=== PATIENT | male | born 1980 | race Caucasian/White ===

== ENCOUNTER 2022-12-12 16:00 | Emergency (ER) | payer OTHER, SELFPAY ==
[2022-12-12 16:06] VITALS: BP 199/102; PULSE 103; RESP 18; TEMP 37.4; O2SAT 98; BMI 39.1
[2022-12-12 17:02] VITALS: BP 183/113
--- NOTE | 2022-12-12 20:43 | ED_ITS ---
HPI - Eye Problem General Chief complaint: Eye Problems Stated complaint: Ammonia chloride exposure-sprayed face Time Seen by Provider: 12/12/22 16:30 History of Present Illness HPI Narrative: 42-year-old young man presents to the emergency department after being splashed with a few drops of ammonium chloride while working when the tube ammonium chloride shattered spraying into his face. He was wearing safety glasses and some drops still got to his eyes. He went directly to the eye wash station. Further went home and showered and has presented to the emergency department after initially presenting to urgent care who recommended he be seen in the ER. Still having some mild irritation. No loss of vision apparent. Is not having tremendous pain. Is not suspected to have gotten any glass shards are otherwise into his eyes. I also note rather elevated blood pressure on initial vitals. Related Data Allergies Allergy/AdvReac Type Severity Reaction Status Date / Time No Known Drug Allergies Allergy Verified 12/12/22 16:10 Review of Systems Status of ROS: Reports: 6 or more systems reviewed and unremarkable except as noted in History and below Exam Narrative: Exam Narrative: Pleasant. NAD. Sounds a little congested. Otherwise breathing easily. Heart is in an elevated rate. Do not see any drainage from the eye. There is mild scleral injection. Shoes are dyed with a light blue liquid that apparently is the ammonium chloride. No odor noted. He does allow for good eye exam. Initial exam does not reveal any foreign body or obvious injury under the lids. There is some mild erythema around the eyes. Did not require anesthetic and placed fluorescein dye. Under blue light/Wood's lamp and there is some broad mild uptake in the lower right sclera and a little less so in the left sclera also lower lid area. No abrasion appreciated over the cornea. Const: Vital Signs, click to edit/add: Vital Signs - 24 hr 12/12/22 16:06 12/12/22 17:02 Temperature 99.3 F Pulse Rate [Pulse Oximeter] 103 H Respiratory Rate 18 Blood Pressure [Ri ght Upper Arm] 199/102 H 183/113 H Pulse Oximetry 98 Oxygen Delivery Me thod Room Air Room Air Documenting provider has reviewed patient's vital signs: yes Course Vital Signs Vital signs: Initial Vital Signs Temperature 99.3 F 12/12/22 16:06 Temperature Source Temporal Artery Scan 12/12/22 16:06 Pulse Rate 103 H 02/27/23 16:06 Pulse Rhythm 12/12/22 16:06 Pulse Strength 3+ Normal 12/12/22 16:06 Respiratory Rate 18 12/12/22 16:06 Blood Pressure 199/102 H 12/12/22 16:06 Blood Pressure Mean 134 12/12/22 16:06 Blood Pressure Position Supine 12/12/22 16:06 Pulse Oximetry 98 12/12/22 16:06 Oxygen Delivery Method 12/12/22 16:06 Vital Signs Temperature 99.3 F 12/12/22 16:06 Pulse Rate 103 H 12/12/22 16:06 Respiratory Rate 18 12/12/22 16:06 Blood Pressure 199/102 H 12/12/22 16:06 Pulse Oximetry 98 12/12/22 16:06 Oxygen Delivery Method 12/12/22 16:06 Temperature 99.3 F 12/12/22 16:06 Pulse Rate 103 H 12/12/22 16:06 Respiratory Rate 18 12/12/22 16:06 Blood Pressure 183/113 H 12/12/22 17:02 Pulse Oximetry 98 12/12/22 16:06 Oxygen Delivery Method 12/12/22 17:02 MDM - Eye Problem MDM Narrative Medical decision making narrative: Appears only have scleral abrasion here. Do not appreciate any foreign body. Poison Control had been contacted upon arrival. No further recommendations. Mr. Elizabeth does note how working with ammonium chloride in general can predispose to the eye sensitivity for him. He is unable to wear PAPR for an extended period time. Discharge Plan Discharge Clinical Impression: Chemical exposure of eye, Abrasion of sclera Patient Disposition: Home, Self-Care Condition: Improved Additional Instructions: I think you might benefit from some generic eye ointment placed at least 4 times a day 1 cm ribbon into both eyes for lubrication and soothing, maybe over the next couple of days.. Be re-evaluated for marked increase in pain, purulent drainage, swelling/redness/heat around your eyes. Given irritation it might be a good idea to avoid contact with this chemical over the course of the day. Admittedly might be soothed with the ointment placed or wearing a PAPR if possible. Your blood pressure was certainly elevated on arrival. I do think this warrants follow-up. I would recheck your blood pressure once every other day after a period of rest for the next 7-10 days and follow up to discuss potentially needed treatment. Follow Up/Referrals: Diallo Gunn MD [Primary Care Provider] - Stand Alone Forms: [employer] Info Instructions
== END 2022-12-12 17:37 | disposition home or self-care (01) ==
PROVIDERS: Emergency Provider Family Medicine; PCP Family Medicine
DX: S00.252A Superficial foreign body of left eyelid and periocular area, initial encounter (principal); S00.251A Superficial foreign body of right eyelid and periocular area, initial encounter; T54.3X1A Toxic effect of corrosive alkalis and alkali-like substances, accidental (unintentional), initial encounter
CPT/HCPCS: 99283